=== PATIENT | female | born 2000 | race Caucasian/White ===

== ENCOUNTER 2025-01-31 06:36 | Day surgery (SDC) | payer OTHER, SELFPAY | END 2025-01-31 14:58 | disposition home or self-care (01) | LOC: GI 06:36 | PROVIDERS: ATTENDING PHYSICIAN Internal Medicine Gastroenterology; FAMILY PHYSICIAN Physician Assistant Medical | DX: R19.4 Change in bowel habit (principal); K64.8 Other hemorrhoids; K31.89 Other diseases of stomach and duodenum; R12 Heartburn; K29.50 Unspecified chronic gastritis without bleeding | CPT/HCPCS: 45380; 43239; 88305; 88342 ==